=== PATIENT | female | born 1990 ===

== ENCOUNTER 2018-01-18 17:38 | Emergency (ER) | payer SELFPAY ==
[2018-01-18 18:33] VITALS: BP 100/56; PULSE 67; RESP 18; TEMP 98; O2SAT 99
--- NOTE | 2018-01-18 18:40 | C.PDOC ---
History Of Present Illness 27 y/o F c no PMHx p/w headache x 6 days. Describes pain as fullness, behind bilateral cheeks, gradually worsening, initially with fever for 3 days but now resolved. Denies vision change, numbness, weakness, vomiting. Time Seen by Provider: 01/18/18 18:16 Chief Complaint (Nursing): Headache Past Medical History Vital Signs: Last Vital Signs Temp 98 F 01/18/18 18:20 Pulse 67 01/18/18 18:20 Resp 18 01/18/18 18:20 BP 100/56 L 01/18/18 18:20 Pulse Ox 99 01/18/18 18:20 Family History: States: No Known Family Hx - Social History Hx Alcohol Use: No Hx Substance Use: No - Immunization History Hx Tetanus Toxoid Vaccination: No Hx Influenza Vaccination: No Review Of Systems Except As Marked, All Systems Reviewed And Found Negative. Cardiovascular: Negative for: Chest Pain Respiratory: Negative for: Shortness of Breath Physical Exam - Physical Exam Additional Physical Exam Comments: Gen: NAD Head: NC/AT Eyes: PERRL ENT: MMM. No mastoid tenderness. No pharyngeal erythema. Sinus tenderness to maxillary sinuses. Neck: Negative Kernig/Brudzinski signs Chest: Mild tenderness to midsternal CV: Reg rate Lungs: CTA b/l Abd: Soft, NT Back: No CVA tenderness SKin: No rash Extremities: NO edema Neuro: Alert, no focal deficit ED Course And Treatment O2 Sat by Pulse Oximetry: 99 Medical Decision Making Medical Decision Making: Discharged home, instructed to f/u with PMD, return to ED immediately for recurrent fever, neck stiffness, vision change, swelling to face, weakness, numbness, or any other problem. Disposition - Disposition Referrals: [facility] [Outside] Disposition: HOME/ ROUTINE Disposition Time: 18:36 Condition: STABLE Prescriptions: Acetaminophen [Tylenol 325mg tab] 2 tab PO Q4H #30 tab Famotidine [Pepcid] 1 tab PO BID #14 tab Guaifenesin [Mucinex] 1,200 mg PO Q12H #18 tab.er.12h Ibuprofen [Motrin] 600 mg PO Q6 #25 tab Instructions: Sinusitis, Adult (DC) - Clinical Impression Clinical Impression: Headache
== END 2018-01-18 18:44 | disposition home or self-care (01) ==
LOC: C.ER 17:38
DX: R51 Headache (principal)